=== PATIENT | female | born 1980 | race American Indian/Alaskan Native ===

== ENCOUNTER 2016-07-26 16:40 | Emergency (ER) | payer OTHER ==
[2016-07-26 18:51] VITALS: BP 127/78
[2016-07-26 19:38] LABS: Basophils % (Auto) 0.3 % (0.0-1.8); Eosinophils % (Auto) 3.4 % (0.0-4.3); Hematocrit 37.8 % (30.3-42.9); Hemoglobin 12.4 gm/dl (10.1-14.3); Mean Corpuscular HGB Conc 33 % (30-34); Mean Corpuscular Hemoglobin 26 pg (28-32); Mean Corpuscular Volume 80 fl (79-97); Platelet Count 325 K/mm3 (140-440); Red Blood Count 4.75 M/mm3 (3.65-5.03); Red Cell Distribution Width 13.3 % (13.2-15.2); White Blood Count 5.4 K/mm3 (4.5-11.0)
--- NOTE | 2016-07-27 07:27 | ED Elopement Review ---
ED Pt Elopement review - Results review Lab results: Laboratory Tests 07/26/16 07/26/16 07/26/16 19:06 19:06 19:07 WBC 5.4 RBC 4.75 Hgb 12.4 Hct 37.8 MCV 80 MCH 26 L MCHC 33 RDW 13.3 Plt Count 325 Lymph % (Auto) 38.6 H Beckham % (Auto) 9.2 H Eos % (Auto) 3.4 Baso % (Auto) 0.3 Lymph # 2.1 Beckham # 0.5 Eos # 0.2 Baso # 0.0 Seg Neutrophils % 48.5 Seg Neutrophils # 2.6 HCG, Quant 8.36 H Blood Type B POSITIVE Antibody Screen Negative - Call Back decision Pt Call Back Decision: Pt to F/U with PMD (BHCG of only 8. Very early preg vs miscarriage. F/u with OB)
[2016-07-27 07:48] LABS: Bilirubin,Urine NEG (Negative); Blood,Urine LG (Negative); Ketones,Urine NEG (Negative); Leukocyte Esterase,Urine NEG (Negative); Mucus,Urine FEW /HPF; Nitrite,Urine NEG (Negative); Protein,Urine <15 mg/dL mg/dL (Negative); Urobilinogen,Urine < 2.0 mg/dL (<2.0)
== END 2016-07-27 00:54 | disposition left against medical advice (07) ==
LOC: ED 16:40
DX: O26.851 Spotting complicating pregnancy, first trimester (principal); Z3A.00 Weeks of gestation of pregnancy not specified; Z53.21 Procedure and treatment not carried out due to patient leaving prior to being seen by health care provider
CPT/HCPCS: 36415; 81001; 84702; 85025; 86850; 86900; 86901

== ENCOUNTER 2016-10-08 20:11 | Emergency (ER) | payer OTHER ==
--- NOTE | 2016-10-08 22:09 | XRay Report ---
FINAL REPORT PROCEDURE: XR ANKLE 3 LT TECHNIQUE: Three views left ankle HISTORY: PAIN COMPARISON: No prior studies are available for comparison. FINDINGS: Moderate soft tissue swelling left ankle. Apparent tourniquet effect at the mid calf area.. Suspect ankle effusion. No definite proper ankle fracture seen per se at this time. Findings suggest mildly comminuted fracturing of the proximal left 5th metatarsal. Recommend left foot series evaluation. IMPRESSION: Soft tissue swelling left ankle Ankle effusion No ankle fracture suspected per se Suspect fracturing of the proximal left 5th metatarsal. Recommend left foot series.
[2016-10-08] MEDS ORDERED: TORADOL IM ONE (22:32)
[2016-10-08] MEDS ORDERED: NORCO 5/325 PO ONE (22:32)
--- NOTE | 2016-10-08 23:45 | XRay Report ---
FINAL REPORT PROCEDURE: XR FOOT 3 LT TECHNIQUE: LEFT foot radiographs, AP, lateral, and oblique views. CPT 14222 HISTORY: pain, swelling over 5th metatarsal COMPARISON: No prior studies are available for comparison. FINDINGS: Fracture (s) and/or Dislocation(s): There is a comminuted fracture involving the base of the 5th metatarsal. This is nondisplaced. Remaining osseous structures are intact without fracture dislocation.. Alignment: Normal . Joint space(s): Normal . Soft tissues: Normal . Bone mineralization: Normal . Foreign bodies: None . Calcaneal spurring: Mild inferior spur. IMPRESSION: Comminuted nondisplaced fracture at the base of the 5th metatarsal..
--- NOTE | 2016-10-09 00:42 | Emergency Department Report ---
HPI - General Chief Complaint: Fall Time Seen by Provider: 10/08/16 20:55 - HPI HPI: 36-year-old female, with no past medical history, presents today with left ankle post fall at 1600 hrs. yesterday. Patient admits to inversion twisting injury. Describes her pain as 9 out of 10 constant sharp pain. She tried Advil with relief. Denies numbness, weakness, paresthesias. Denies history of injury or surgery to left ankle or foot. Denies fevers, chills, nausea, vomiting, chest pain, shortness of breath, abdominal pain. ED Past Medical Hx - Past Medical History Previous Medical History?: Yes Hx Hypertension: Yes (PREECLAMPSIA) Additional medical history: preeclampsia with last - Surgical History Past Surgical History?: No - Social History Smoking Status: Never Smoker Substance Use Type: None - Medications Home Medications: Home Medications Medication Instructions Recorded Confirmed Last Taken Type HYDROcodone/APAP 5-325 [[place] 1 each PO Q6HR PRN #20 tablet 10/09/16 Unknown Rx 5/325] Ibuprofen [Motrin 800 MG tab] 800 mg PO Q8HR PRN #30 tablet 10/09/16 Unknown Rx ED Review of Systems ROS: Stated complaint: FALL/LT ANKLE AND LEG INJURY Other details as noted in HPI Constitutional: denies: chills, fever, malaise Eyes: denies: eye pain ENT: denies: ear pain, throat pain, congestion Respiratory: denies: cough, shortness of breath, wheezing Cardiovascular: denies: chest pain, palpitations Endocrine: no symptoms reported Gastrointestinal: denies: abdominal pain, nausea, vomiting Musculoskeletal: joint swelling, arthralgia Neurological: denies: headache, weakness, numbness, paresthesias Physical Exam - Physical Exam Vital Signs: Vital Signs 10/08/16 20:18 Temperature 98.2 F Pulse Rate 88 Respiratory 20 Rate Blood Pressure 133/89 O2 Sat by Pulse 100 Oximetry Physical Exam: GENERAL: The patient is well-developed and well-nourished. Patient is in NAD. HEAD: Normocephalic. Atraumatic. NECK: No midline or paraspinal tenderness to palpation. Full range of motion. CHEST/LUNGS: Clear to auscultation throughout. HEART/CARDIOVASCULAR: Regular rate and rhythm. No murmurs, rubs or gallops. ABDOMEN: Abdomen is soft, nontender. Bowel sounds normoactive. No guarding or rebound tenderness. LEFT FOOT/ANKLE: Full ankle range of motion. No tenderness to palpation of the ankle joint, mild surrounding edema noted. Tenderness to palpation and edema noted over the proximal aspect of the left fifth metatarsal. No deformity or ecchymosis noted. Normal sensation. Peripheral pulses intact. Capillary refill less than 2 seconds. NEURO: Alert and oriented x 3. ED Course Vital Signs 10/08/16 20:18 Temperature 98.2 F Pulse Rate 88 Respiratory 20 Rate Blood Pressure 133/89 O2 Sat by Pulse 100 Oximetry ED Medical Decision Making - Lab Data Vital Signs 10/08/16 20:18 Temperature 98.2 F Pulse Rate 88 Respiratory 20 Rate Blood Pressure 133/89 O2 Sat by Pulse 100 Oximetry - Radiology Data Radiology results: report reviewed Left ankle x-ray: Moderate soft tissue swelling of left ankle. Apparent tourniquet effect at the mid calf area. Suspect ankle effusion. No definite proper ankle fracture seen per say at this time. Left foot x-ray: There is a comminuted fracture involving the base of the fifth metatarsal. This is nondisplaced. Remaining osseous structures are intact without fracture or dislocation. Normal alignment, joint space, soft tissues, bony mineralization. No foreign bodies. Mild inferior calcaneal spur. - Medical Decision Making 36-year-old female presents today with left foot pain and swelling post fall. Her x-ray results reveal a possible ankle effusion and comminuted nondisplaced fracture at the base of the fifth metatarsal. Patient has been put in a posterior ankle splint. Neurovascularly intact post-splint. Referral for orthopedic has been provided.Patient is in no acute distress at this time. She will be discharged home and is encouraged to follow up with a primary care provider. She will be sent home on [place] and ibuprofen and is encouraged to return to the emergency room for any worsening symptoms. Critical care attestation.: If time is entered above; I have spent that time in minutes in the direct care of this critically ill patient, excluding procedure time. ED Disposition Clinical Impression: Fracture of 5th metatarsal Qualifiers: Encounter type: initial encounter Fracture type: closed Fracture alignment: nondisplaced Laterality: left Qualified Code(s): S92.355A - Nondisplaced fracture of fifth metatarsal bone, left foot, initial encounter for closed fracture Ankle effusion Qualifiers: Laterality: left Qualified Code(s): M25.472 - Effusion, left ankle Disposition: DISCHARGED TO HOME OR SELFCARE Is pt being admited?: No Does the pt Need Aspirin: No Condition: Stable Instructions: Foot Fracture in Adults (ED) Additional Instructions: Rest. Ice. Compress. Elevate. Follow-up with primary care provider and orthopedic. Return to the emergency department if symptoms worsen. Prescriptions: HYDROcodone/APAP 5-325 [[place] 5/325] 1 each PO Q6HR PRN #20 tablet PRN Reason: Pain Ibuprofen [Motrin 800 MG tab] 800 mg PO Q8HR PRN #30 tablet PRN Reason: Pain Referrals: PRIMARY CAREMD [Primary Care Provider] - 3-5 Days LUCY SALMON MD [Staff Physician] - 3-5 Days Forms: Work/School Release Form(ED), Accompanied Note Time of Disposition: 00:46
[2016-10-09 01:26] VITALS: BP 141/74
== END 2016-10-09 01:10 | disposition home or self-care (01) ==
LOC: ED 20:11
DX: S92.355A Nondisplaced fracture of fifth metatarsal bone, left foot, initial encounter for closed fracture (principal); M25.472 Effusion, left ankle; I10 Essential (primary) hypertension; W19.XXXA Unspecified fall, initial encounter; Y93.89 Activity, other specified; Y99.9 Unspecified external cause status; Y92.89 Other specified places as the place of occurrence of the external cause
CPT/HCPCS: 29515; 73610; 73630; 96372; 99284; J1885